=== PATIENT | female | born 1950 | race Caucasian/White ===

== ENCOUNTER 2020-08-12 09:34 | Day surgery (SDC) | payer MEDICARE, OTHER ==
[2020-08-10 13:36] LABS: COVID AG,FIA SOURCE NASOPHARYNGEAL
[2020-08-10 13:37] LABS: BASOPHILS % (AUTO) 0.9 % (0.0-2.0); EOSINOPHILS % (AUTO) 1.5 % (1.0-6.0); HEMATOCRIT 36.4 % (36-46); MEAN CORPUSCULAR HEMOGLOBIN 33.9 pg (26.0-34.0); MEAN CORPUSCULAR VOLUME 103 fL (80-100); MONOCYTES # (AUTO) 0.8 K/uL (0.1-1.0); MONOCYTES % (AUTO) 7.8 % (2.0-9.0); NEUTROPHILS # (AUTO) 6.9 K/uL (1.8-7.7); NEUTROPHILS % (AUTO) 69.8 % (40.0-70.0); PLATELET COUNT (AUTO) 303 K/uL (150-450); RED BLOOD CELL COUNT(AUTO) 3.55 MIL/uL (4.00-5.20); RED CELL DISTRIBUTION WIDTH 12.7 % (11.5-14.5)
[2020-08-10 13:49] LABS: ANION GAP 6 mmol/L (8-16); CALCIUM, TOTAL 8.3 mg/dL (8.8-10.5); CARBON DIOXIDE 30 mmol/L (22-29); CHLORIDE 100 mmol/L (98-107); CREATININE 0.79 mg/dL (0.60-1.30); GLOMERULAR FILTR. RATE CALC > 60 mL/min (>60); GLUCOSE,RANDOM 84 mg/dL (70-110); POTASSIUM 3.7 mmol/L (3.5-5.1); SODIUM SERUM 136 mmol/L (136-145); UREA NITROGEN, BLOOD 11 mg/dL (7-18)
[2020-08-10 13:50] LABS: PROTHROMBIN TIME 10.5 SEC (9.4-11.6)
[2020-08-10 13:53] LABS: ALANINE AMINOTRANSFERASE 28 U/L (12-78); ALBUMIN 3.6 g/dL (3.4-5.0); ALKALINE PHOSPHATASE 43 U/L (46-116); ASPARTATE AMINOTRANSFERASE 28 U/L (15-37); BILIRUBIN,TOTAL 0.4 mg/dL (0.1-1.0); TOTAL PROTEIN, SERUM 6.6 g/dL (6.4-8.2)
[~2020-08-12] VITALS: Ht 170.2 cm; Wt 50.9 kg
[~2020-08-12 09:34] MED LIST: GABA-1201 PO; LISI-893 PO; ROSU20TA73 PO; SODIUM CHLORIDE 0.9% 1,000 ML IV ONE
[2020-08-12] MEDS ORDERED: SODIUM CHLORIDE 0.9% 1,000 ML ONE (09:52)
[2020-08-12] MEDS ORDERED: LIDOCAINE/PF 1% 30 ML VIAL ONE (13:03)
[2020-08-12] MEDS ORDERED: IODIXANOL 320 MG/ML 100 ML VIAL ONE ×2 (13:03→14:17)
[2020-08-12] MEDS ORDERED: IODIXANOL 320 MG/ML 50 ML VIAL ONE (13:03)
[2020-08-12] MEDS ORDERED: IODIXANOL 320 MG/ML 150 ML VIAL ONE (13:03)
[2020-08-12] MEDS ORDERED: SODIUM BICARBONATE 50 MEQ/50 ML VIAL ONE (13:03)
[2020-08-12] MEDS ORDERED: HEPARIN SODIUM 1000 UNITS/NS 1,000 ML ONE (13:04)
[2020-08-12 13:15] VITALS: BP 184/80
[2020-08-12] MEDS ORDERED: MIDAZOLAM HCL 2 MG/2 ML VIAL ONE ×3 (13:22→14:32)
[2020-08-12] MEDS ORDERED: FentaNYL CITRATE PF 100 MCG/2 ML VIAL ONE ×2 (13:22→14:31)
[2020-08-12] MEDS ORDERED: FentaNYL CITRATE PF 100 MCG/2 ML VIAL IVP ONE ×3 (14:00→14:30)
[2020-08-12] MEDS ORDERED: MIDAZOLAM HCL 2 MG/2 ML VIAL IVP ONE ×3 (14:00→14:30)
[2020-08-12] MEDS ORDERED: LIDOCAINE 1% 30 ML/SOD BICARB 8.4% 4 ML SQ ONE (14:30)
[2020-08-12] MEDS ORDERED: HEPARIN SODIUM 1000 UNITS/NS 1,000 ML IARTER ONE (14:30)
[2020-08-12] MEDS ORDERED: IODIXANOL 320 MG/ML 100 ML VIAL IARTER ONE ×2 (14:30)
[2020-08-12] MEDS ORDERED: HEPARIN SODIUM,PORCINE 5,000 UNITS/ML VIAL IVP ONE (14:30)
[2020-08-12] MEDS ORDERED: IODIXANOL 320 MG/ML 50 ML VIAL IARTER ONE (14:30)
[2020-08-12] MEDS ORDERED: SODIUM CHLORIDE 0.9% 500 ML IV ONE (15:30)
[2020-08-12] MEDS ORDERED: ASPI81TA87 PO (15:34)
[2020-08-12 15:39] VITALS: BP 112/70
== END 2020-08-12 18:35 | disposition home or self-care (01) ==
LOC: CATHLAB 09:34
PROVIDERS: ATTEND Internal Medicine Cardiovascular Disease
DX: I70.212 Atherosclerosis of native arteries of extremities with intermittent claudication, left leg (principal); E78.5 Hyperlipidemia, unspecified; I10 Essential (primary) hypertension; Z79.82 Long term (current) use of aspirin; E78.2 Mixed hyperlipidemia; Z72.89 Other problems related to lifestyle; Z79.899 Other long term (current) drug therapy; Z98.890 Other specified postprocedural states
CPT/HCPCS: 36415; 37221; 75625; 75710; 80053; 85025; 85610; 85730; 87426; 93005; C1725; C1760; C1874; C1887; C9803; J1644; J2250; J3010; J3490 ×2; J7030; Q9967 ×3; 36200; 37205; 75630; 75716; 75962; Z7610